=== PATIENT | male | born 1960 | race Caucasian/White ===

== ENCOUNTER → 2018-07-21 | Outpatient (CLI) | payer OTHER | LOC: FIMAGING 08:48 | PROVIDERS: ATTEND Orthopaedic Surgery | DX: Z01.818 Encounter for other preprocedural examination (principal); M17.12 Unilateral primary osteoarthritis, left knee; M25.462 Effusion, left knee ==

== ENCOUNTER 2018-08-10 05:46 | Observation (INO) | payer OTHER ==
[2018-08-10] MEDS ORDERED: FAMOTIDINE 20 MG TAB PO ONE (05:54)
[2018-08-10] MEDS ORDERED: ACETAMINOPHEN 325 MG TAB PO ONE (05:54)
[2018-08-10] MEDS ORDERED: ceFAZolin 2 GM/DEXTROSE 100 ML IV ONE (05:54)
[2018-08-10] MEDS ORDERED: DEXAMETHASONE 4 MG/ML VIAL IVP ONE (05:54)
[2018-08-10] MEDS ORDERED: LR 1,000 ML IV ONE (05:56)
[2018-08-10] MEDS ORDERED: ROPIVACAINE 0.2% 80 MG, EPINEPHrine 0.2 MG, KETOROLAC TROMETHAMINE 30 MG in SYRINGE 0 ML IU ONE (06:00)
[2018-08-10] MEDS ORDERED: TRANEXAMIC ACID 3,000 MG in NS (SYRINGE) 50 ML IRR ONE (06:00)
--- NOTE | 2018-08-10 06:14 | PDHPUP ---
History & Physical Update H&P update statement: This history and physical update is based on an assessment of the patient which was completed after admission or registration (within 24 hours), but prior to the surgery/procedure. H&P update: H&P reviewed & patient examined, no change in patient's condition since H&P completed
[2018-08-10] MEDS ORDERED: TRANEXAMIC ACID 3,000 MG/50 ML BAG IRR ONE (06:52)
[2018-08-10] MEDS ORDERED: MIDAZOLAM 2 MG/2 ML VIAL IVP ONE (06:52)
--- NOTE | 2018-08-10 06:53 | PDANEPAE ---
ANE Past Medical History - Cardiovascular History Hx Hypertension: No Hx Arrhythmias: No Hx Chest Pain: No Hx Coronary Artery / Peripheral Vascular Disease: No Hx CHF / Valvular Disease: No Hx Palpitations: No Cardiovascular History Comment: ELEVATED CHOLESTEROL - Pulmonary History Hx COPD: No Hx Asthma/Reactive Airway Disease: No Hx Recent Upper Respiratory Infection: No Hx Oxygen in Use at Home: No Hx Sleep Apnea: No Sleep Apnea Screening Result - Last Documented: Negative Pulmonary History Comment: URI 07/2018 - Neurologic History Hx Cerebrovascular Accident: No Hx Seizures: No Hx Dementia: No - Endocrine History Hx Diabetes: No - Renal History Hx Renal Disorders: Yes Renal History Comment: PROSTATECTOMY WITH POST ED - Liver History Hx Hepatic Disorders: No - Neurological & Psychiatric Hx Hx Neurological and Psychiatric Disorders: No - Cancer History Hx Cancer: Yes Cancer History Comment: PROSTATE - Congenital Disorder History Hx Congenital Disorders: No - GI History Hx Gastrointestinal Disorders: No - Other Health History Other Health History: OSTEOARTHRITIS. TOP FRONT TOOTH CAPPED - Chronic Pain History Chronic Pain: Yes (LT KNEE) - Surgical History Prior Surgeries: RT TOTAL KNEE 2015. RADICAL PROSTATECTOMY. NANCI KNEE SCOPES. RT ANKLE SCOPE ANE Review of Systems Review of Systems: - Exercise capacity METS (RN): 5 METS ANE Patient History - Allergies Allergies/Adverse Reactions: Sulfa (Sulfonamide Antibiotics) Allergy (Verified 07/21/18 11:09) Rash - Home Medications Home Medications: Acetaminophen [Tylenol 325mg (*)] 325 mg PO Q6 PRN 07/21/18 [Last Taken 1 Month Ago ~07/10/18] Cholecalciferol Vit D3 [Vitamin D3 (*)] 1,000 units PO DAILY 07/21/18 [Last Taken 2 Weeks Ago ~07/27/18] Herbals/Supplements -Info Only 1 ea PO DAILY 07/21/18 [Last Taken 2 Weeks Ago ~ 07/27/18] Multivitamins [Multivitamin (*)] 1 each PO DAILY 07/21/18 [Last Taken 2 Weeks Ago ~07/27/18] [place]-3 Fatty Acids [Fish Oil 1000 mg (*)] 1,000 mg PO DAILY 07/21/18 [Last Taken 2 Weeks Ago ~07/27/18] - NPO status NPO Since - Liquids (Date): 08/09/18 NPO Since - Liquids (Time): 21:00 NPO Since - Solids (Date): 08/09/18 NPO Since - Solids (Time): 19:30 - Smoking Hx Smoking Status: Never smoked ANE Labs/Vital Signs - Vital Signs Blood Pressure: 113/78 Heart Rate: 68 Respiratory Rate: 18 O2 Sat (%): 91 Height: 185.42 cm Weight: 108.862 kg ANE Physical Exam - Airway Neck exam: FROM Mallampati Score: Class 1 Mouth exam: normal dental/mouth exam - Pulmonary Pulmonary: no respiratory distress - Cardiovascular Cardiovascular: regular rate and rhythym - ASA Status ASA Status: I ANE Anesthesia Plan Anesthesia Plan: spinal Total IV Anesthesia: Yes
[2018-08-10] MEDS ORDERED: BUPIVACAINE 0.5% 30 ML SDV ONE (06:56)
[2018-08-10] MEDS ORDERED: BUPIVACAINE/EPI 0.25% 30 ML SDV ONE (06:57)
[2018-08-10] MEDS ORDERED: BUPIVACAINE/EPI 0.5% 30 ML SDV ONE (06:57)
[2018-08-10] MEDS ORDERED: PROPOFOL/EMULSION 500 MG/50 ML BOTTLE IV ONE ×2 (07:01→07:36)
[2018-08-10] MEDS ORDERED: HYDROCODONE/APAP 5/325 TAB PO PRN (07:41)
[2018-08-10] MEDS ORDERED: ALBUTEROL 3 ML DEYVIAL IH PRN (07:41)
[2018-08-10] MEDS ORDERED: MEPERIDINE 25 MG/0.5 ML AMP IVP PRN (07:41)
[2018-08-10] MEDS ORDERED: ACETAMINOPHEN 500 MG TAB PO PRN (07:41)
[2018-08-10] MEDS ORDERED: NALOXONE HCL 0.4 MG/ML INJ IVP PRN (07:41)
[2018-08-10] MEDS ORDERED: ONDANSETRON 4 MG/2 ML VIAL IVP PRN ×2 (07:41→08:37)
[2018-08-10] MEDS ORDERED: fentaNYL 100 MCG/2 ML INJ IVP PRN (07:41)
[2018-08-10] MEDS ORDERED: oxyCODONE IR 5 MG TAB PO PRN ×2 (07:41→08:37)
[2018-08-10] MEDS ORDERED: PROMETHAZINE HCL 25 MG SUPPR PR PRN (08:37)
[2018-08-10] MEDS ORDERED: diphenhydrAMINE 25 MG CAP PO PRN (08:37)
[2018-08-10] MEDS ORDERED: MAGNESIUM HYDROXIDE 30 ML UDCUP PO PRN (08:37)
[2018-08-10] MEDS ORDERED: LACTULOSE 20 GM/30 ML UDCUP PO PRN (08:37)
[2018-08-10] MEDS ORDERED: CYCLOBENZAPRINE 10 MG TAB PO PRN (08:37)
[2018-08-10] MEDS ORDERED: ONDANSETRON DISINTEGRATING 4 MG TAB PO PRN (08:37)
[2018-08-10] MEDS ORDERED: BISACODYL 10 MG SUPP PR PRN (08:37)
[2018-08-10] MEDS ORDERED: PROMETHAZINE HCL 25 MG/ML INJ IVP PRN (08:37)
[2018-08-10] MEDS ORDERED: TEMAZEPAM 15 MG CAP PO PRN (08:37)
[2018-08-10] MEDS ORDERED: DIPHENOXYLATE/ATROPINE LOMOTIL 1 TAB PO PRN (08:37)
[2018-08-10] MEDS ORDERED: POLYETHYLENE GLYCOL 3350 17 GM PKT PO PRN (08:37)
[2018-08-10] MEDS ORDERED: METOCLOPRAMIDE 10 MG/2 ML VIAL IVP PRN (08:37)
[2018-08-10] MEDS ORDERED: SENNOSIDES/DOCUSATE SODIUM TAB PO SCH (09:00)
[2018-08-10] MEDS ORDERED: LR 1,000 ML IV SCH (09:00)
--- NOTE | 2018-08-10 09:17 | POSTANESTH ---
Post Anesthetic Evaluation Cardiovascular Status: Similar to Pre-Op Cond Respiratory Status: Similar to Pre-op Cond. Level of Consciousness/Mental Status: Alert and Oriented Pain Control: Adequate, Prn Tx Ordered Nausea/Vomiting Control: Adequate, Prn Tx Ordered Complications Possibly Related to Anesthesia: None Noted
--- NOTE | 2018-08-10 09:18 | POSTOPPROG ---
Post Op Note Date of Operation: 08/10/18 Surgeon: Maxi Burgos Mixing House Operator: Nellie Ortiz PAC Anesthesiologist: Dr. Mahad Dennis Anesthesia: Local (Specify), Other (Specify) (adductor canal block) Pre-op Diagnosis: left knee OA Post-op Diagnosis: same Indication: left knee pain Procedure: LTKA, robot assisted Findings: severe OA of left knee Inf/Abcess present in the surg proc area at time of surgery?: No EBL: 50-100
--- NOTE | 2018-08-10 11:54 | SOAPPROG ---
SOAP Progress Note Assessment/Plan: Assessment: s/p left TKA, robot assist - this morning Plan: Begin d/c planning - patient is hoping to be discharged today; he will be going home with the support of his . Continue pain medication - tolerating oral meds Continue VTE ppx - aspirin 81 mg BID x 4 weeks, JCARLOS cardozo, SCDs. He will be d/c with aspirin and JCARLOS cardozo. Continue PT - he will need to be cleared by PT prior to hospital d/c Subjective: Patient states he is feeling good, he is wanting to go home today. He will be going home with the support of his . He has outpatient PT starting next Wednesday. He denies SOB, chest pain, fever, chills, nausea, vomiting. Patient has been able to urinate spontaneously. Objective: Vital Signs Temp Pulse Resp BP Pulse Ox 36.5 C 76 19 129/95 H 93 08/10/18 11:43 08/10/18 11:43 08/10/18 11:43 08/10/18 11:43 08/10/18 11:43 08/09/18 08/10/18 08/11/18 05:59 05:59 05:59 Intake Total 300 Output Total 930 Balance -630 Patient resting comfortably in bed. He is tolerating ZeroKnee. LLE: Surgical wound dressings are clean, dry and intact. Lower leg compartments are soft and nontender. He can actively DF and PF left foot and great toe. Grossly NVI distally. ICD10 Worksheet Patient Problems: Problems Problem Status Onset Unilateral primary osteoarthritis, left knee Acute
[2018-08-10] MEDS ORDERED: ceFAZolin 2 GM/DEXTROSE 100 ML IV SCH (14:00)
[2018-08-10] MEDS ORDERED: ACETAMINOPHEN 325 MG TAB PO SCH (14:38)
[2018-08-10 15:13] VITALS: BP 110/77
--- NOTE | 2018-08-10 16:15 | PDDCSUM ---
Discharge Summary Discharge Summary: ADMISSION DIAGNOSIS: Left knee degenerative arthritis DISCHARGE DIAGNOSIS: Left knee degenerative arthritis OPERATION PERFORMED: August 10, 2018, Left total knee arthroplasty, Patrick robot assisted. POSTOPERATIVE COMPLICATIONS: None CONDITION ON DISCHARGE: Improved DESCRIPTION OF HOSPITAL COURSE: The patient was admitted to the hospital on the morning of surgery. The patient tolerated the procedure well, was transferred to the recovery room and then the orthopedic floor. Postoperatively, patient was treated with multimodal DVT prophylaxis, including aspirin, JCARLOS hose and SCDs. Patient was seen by PT and made excellent and rapid progress with ambulation and stairs. Patient was able to void spontaneously. At the time of discharge, patient was afebrile, wound was clean and dry. Patient is walking with a walker. DISPOSITION: The patient is discharged home with the support of his and will have outpatient PT within the next 1-2 weeks. Patient may progress to full weightbearing on the right lower extremity as tolerated. He will continue with aspirin 81 mg BID for 4 weeks and JCARLOS hose for 2 weeks during the day for DVT prophylaxis. Patient can take Celebrex, oxycodone, and Tylenol for pain control. The patient will be seen at Dr. Burgos's office on 08-30-18. If there are any problems, patient is to call Dr. Burgos at the office.
[2018-08-10] MEDS ORDERED: ASPIRIN 81 MG CHEWABLE TAB PO SCH (21:00)
[2018-08-10] MEDS ORDERED: FAMOTIDINE 20 MG TAB PO SCH (21:00)
--- NOTE | 2018-08-11 11:48 | GOP ---
[f rep st] OPERATIVE REPORT DATE OF OPERATION: 08/10/2018 SURGEON: Bobby Burgos MD COMPRESSION MOLDING MACHINE SETTER: Viviane Donovan P.A.-c. ANESTHESIA: Spinal. PREOPERATIVE DIAGNOSIS: Left Knee DJD POSTOPERATIVE DIAGNOSIS: Left knee DJD PROCEDURE PERFORMED: Left total knee arthroplasty with computer navigation, robotic assist. FINDINGS: DJD ESTIMATED BLOOD LOSS: 30 cc. INDICATIONS: The patient is a 58-year-old male with severe and progressive pain and deformity of the left knee unresponsive to conservative care. The risks and benefits of surgical intervention were explained in detail. DESCRIPTION OF PROCEDURE: The patient was brought to the operative room and placed on the table in the supine position. Spinal anesthesia was induced without difficulty. A pneumatic tourniquet was applied about the left proximal thigh, and the leg was prepped and draped in a sterile fashion. The leg horner was applied. After exsanguination by elevation the tourniquet was inflated to 265 mmHg. Incision was made anterior medial from the tibial tuberosity to a point 2 cm proximal to the superior pole of the patella. Medial parapatellar arthrotomy was carried out from the superior pole of the patella and posteriorly in line with the fibers of the Type II VMO. The medial collateral ligament was elevated and the infrapatellar fat pad was resected. Pathology: Severe medial and patellar femoral osteoarthritis. The patella was everted and the articular surface was excised. A 40 mm patellar button was placed. Attention was turned first to the distal aspect of the femur. After exposure of the femur, 2 half pins were placed for fixation of the femoral array. In a similar fashion, 2 pins were placed anteromedial on the tibia for fixation of the tibial array. External land marking and registration of the hip center was performed without difficulty. Internal femoral and tibial registration was carried out without difficulty and the femoral and tibial checkpoints were placed and verified for accuracy. Attention was turned to the femur. The foot print for the size 6 femoral component was cut with the saw using the [employer] robotic system and verified for accuracy against the CT based plan. In a similar fashion, the saw was used to cut the footprint for the size 7 tibial component using the [employer] system and verified for accuracy against the CT based plan. The tibial articular surface was excised without difficulty, followed by the intercondylar box cut. The knee was extended and the remnants of the medial and lateral meniscus were excised. The posterior capsule was injected with ropivacaine, epinephrine and Toradol. A size 7 tibial tray was positioned. Trial reduction was then carried out. There was excellent range of motion, alignment, and stability using the 9 mm polyethylene. All trials were then removed. The joint was thoroughly irrigated and carefully dried. The press-fit components were implanted. The permanent 9 mm polyethylene was placed without difficulty. The tourniquet was deflated and all bleeders were coagulated. The wound was thoroughly irrigated and closed using interrupted sutures of 2-0 Vicryl for the joint capsule. The subcu was closed with 3-0 Vicryl and the skin with 4-0 Monocryl. Dermabond and Steri-Strips were applied followed by a compressive dressing. The patient was then moved from the operating room to the recovery room in good condition, having tolerated the procedure well. /[id number]/MODL MTDD
== END 2018-08-10 17:21 | disposition home or self-care (01) ==
LOC: F3N 05:46
PROVIDERS: ADMIT Orthopaedic Surgery; ATTEND Orthopaedic Surgery
DX: M17.12 Unilateral primary osteoarthritis, left knee (principal); E78.5 Hyperlipidemia, unspecified; Z85.46 Personal history of malignant neoplasm of prostate; Z82.49 Family history of ischemic heart disease and other diseases of the circulatory system; Z96.641 Presence of right artificial hip joint; Z88.2 Allergy status to sulfonamides
CPT/HCPCS: 27447; 73560; 97116; 97161; G0378; J0171; J0690; J1100; J1885; J2250; J2704; J2795